=== PATIENT | female | born 1985 | race Caucasian/White ===

== ENCOUNTER → 2017-07-15 | Day surgery (SDC) | payer SELFPAY ==
[~2017-07-15] VITALS: Ht 167.6 cm; Wt 68.0 kg
--- NOTE | 2017-07-15 17:53 | Operative Report ---
Operative/Inv Procedure Report Surgery Date: 07/15/17 Name of Procedure: Liposuction arms anterior abdominal wall lateral thighs upper lower back and fat transfer to the face and buttock Pre-Operative Diagnosis: Lipodystrophy Post-Operative Diagnosis: Same Estimated Blood Loss: scant (250) Surgeon/Roller: Cosmo Castro MD Anesthesia: general endotracheal tube Operative/Procedure Note Note: Patient was counseled Min procedure the alternatives risks and expected outcomes as relates to her request for surgical intervention to treat cosmetic lipodystrophy. The patient has had a previous procedure done elsewhere which was left her with some divots on the lateral left thigh. And to improve upon this but possibly not completely.. The patient is requesting fat transfer to the buttock with reshaping. He would like liposuction of the posterior arms anterior abdominal wall upper lower back specifically a very narrow waist is her request. Given if this is possible. She denies requested fat transfer to the buttock. We talked specifically about that and she was given a SPS informed consents which she has returned sign has no questions regarding them today. Using a given in regards to shape. Also bili of cysts abscess loss of fat guaranteed to some percentage. Her injury to surrounding structures asymmetries and the skin numbness pain hematoma seroma once again today. She was marked in the standing position shown the areas of would be treated and those that would not on the anterior surface of the body as well as the arms. Room after signing informed consent today. Venodyne boots are placed and general anesthesia was established intravenous antibiotics were given. Fluid was placed in the posterior posterior arms anterior abdominal wall 5. Liposuction was carried out using the S AST technique. Incisions were closed in 2 layers. She was then put into the prone position with further liposuction was carried out of the upper lower back and waist. Repaired with approximately 1600 mL total fat transfer to the buttock 800 mL per side through small stab incisions which were closing 2 layers. Symmetry was good on the table subcutaneous layer only was treated.
== END ==
LOC: STS 01:52
DX: Z41.1 Encounter for cosmetic surgery (principal); E65 Localized adiposity; Z87.891 Personal history of nicotine dependence; K21.9 Gastro-esophageal reflux disease without esophagitis; K25.9 Gastric ulcer, unspecified as acute or chronic, without hemorrhage or perforation
CPT/HCPCS: 81025; J0131; J0690; J1100; J2001; J2250; J2405